=== PATIENT | female | born 1990 | race Caucasian/White ===

== ENCOUNTER 2021-07-09 05:24 | Inpatient (IN) | payer OTHER ==
[~2021-07-09] VITALS: Ht 167.6 cm; Wt 81.8 kg
[2021-07-09] VITALS (9 sets, daily range): BP systolic 118–137; BP diastolic 69–95
[~2021-07-09 05:24] MED LIST: PREN200C PO; ZOLO100T PO
[2021-07-09] MEDS ORDERED: LR 1,000 ML IV ONE (05:45)
[2021-07-09] MEDS ORDERED: ceFAZolin SOD 2 GM in IV 1 EA IV ONE (05:45)
[2021-07-09] MEDS ORDERED: BICITRA 30ML SOLN UDC PO ONE (05:45)
[2021-07-09 06:19] LABS: HEMATOCRIT 35.7 % (36.0-47.0); HEMOGLOBIN 12.4 g/dl (12.0-15.5); MEAN CORPUSCULAR HEMOGLOBIN 30.6 pg (27.0-33.0); MEAN CORPUSCULAR HGB CONC 34.7 g/dl (32.0-36.5); MEAN CORPUSCULAR VOLUME 88.1 fl (80.0-96.0); PLATELET COUNT, AUTOMATED 154 10^3/uL (150-450); RED BLOOD COUNT 4.05 10^6/uL (4.00-5.40); WHITE BLOOD COUNT 6.8 10^3/uL (4.0-10.0)
[2021-07-09] MEDS ORDERED: CLINDAMYCIN 900 MG in IV 1 EA IV ONE (06:35)
[2021-07-09] MEDS ORDERED: HOME MED LIST COMPLETE! XX SCH (06:40)
[2021-07-09] MEDS ORDERED: GENTAMICIN 400 MG in D5W 100 ML IV ONE (06:45)
[2021-07-09] MEDS: LR 1,000 ML IV SCH ×2 (07:07→14:18)
[2021-07-09] MEDS ORDERED: MORPHINE PRES-FREE INJ 10 MG/10 ML VIAL As Ordered ONE (07:14)
[2021-07-09] MEDS ORDERED: OXYTOCIN INJ 10 UNITS/ML VIAL (J2590) As Ordered ONE (07:14)
[2021-07-09] MEDS ORDERED: NALOXONE INJ 0.4MG/1ML VIAL (J2310 PER 1MG) IV PRN ×2 (08:08)
[2021-07-09] MEDS ORDERED: diphenhydrAMINE 50MG/ML VIAL (J1200) IV PRN (08:08)
[2021-07-09] MEDS ORDERED: ONDANSETRON 4MG/2ML VIAL IV PRN ×2 (08:08→09:50)
[2021-07-09] MEDS ORDERED: METOCLOPRAMIDE INJ 10MG/2ML VIAL (J2765 PER 1) IV PRN ×2 (08:08→09:50)
[2021-07-09] MEDS ORDERED: ONDANSETRON 4MG/2ML VIAL As Ordered ONE (08:38)
[2021-07-09] MEDS ORDERED: dexameTHASONE 4 MG/ML 1ML VIAL (J1100 PER 1MG) As Ordered ONE (08:38)
[2021-07-09] MEDS ORDERED: LIDOCAINE 1% MDV 20ML VIAL As Ordered ONE (09:07)
[2021-07-09] MEDS ORDERED: KETOROLAC 60MG 2ML VIAL As Ordered ONE (09:08)
[2021-07-09] MEDS ORDERED: METOCLOPRAMIDE INJ 10MG/2ML VIAL (J2765 PER 1) As Ordered ONE (09:08)
[2021-07-09] MEDS ORDERED: RHOGAM 300 MCG (1500 IU) INJ (J2790) IM SCH (09:25)
[2021-07-09] MEDS ORDERED: MEASLES,MUMPS,RUBELLA VACCINE INJ (MMR-II) (90707) SC SCH (09:25)
[2021-07-09] MEDS ORDERED: oxyCODONE 5MG TAB PO PRN ×2 (09:25→09:50)
[2021-07-09] MEDS ORDERED: LR 1,000 ML IV SCH ×2 (09:25→09:50)
[2021-07-09] MEDS ORDERED: PROMETHAZINE 25 MG TAB PO PRN (09:25)
[2021-07-09] MEDS ORDERED: OXYTOCIN DRIP 30 UNITS in IV 1 EA IV SCH (09:25)
[2021-07-09] MEDS ORDERED: DOCUSATE SODIUM 100MG CAPSULE PO PRN (09:25)
[2021-07-09] MEDS ORDERED: OXYTOCIN 30 UNITS IN 0.9% NaCl 500ML IV BAG (J2590) As Ordered ONE (09:32)
[2021-07-09] MEDS ORDERED: LIDOCAINE 1% MDV 20ML VIAL SC ONE (09:35)
[2021-07-09] MEDS ORDERED: fentaNYL 100 MCG/2 ML INJECTION IV PRN (09:50)
[2021-07-09] MEDS: PRENATAL VITAMINS CHEWABLE TABLET PO SCH (11:23)
[2021-07-09] MEDS: KETOROLAC 30 MG/ML 1ML VIAL IV SCH ×2 (14:53→20:07)
[2021-07-10 02:00] VITALS: BP 113/69
[2021-07-10] MEDS: KETOROLAC 30 MG/ML 1ML VIAL IV SCH (02:24)
[2021-07-10 06:00] VITALS: BP 97/58
[2021-07-10 07:44] LABS: HEMATOCRIT 33.8 % (36.0-47.0); HEMOGLOBIN 11.5 g/dl (12.0-15.5); MEAN CORPUSCULAR VOLUME 91.1 fl (80.0-96.0); PLATELET COUNT, AUTOMATED 145 10^3/uL (150-450); RED BLOOD COUNT 3.71 10^6/uL (4.00-5.40); WHITE BLOOD COUNT 11.9 10^3/uL (4.0-10.0)
[2021-07-10] MEDS: PRENATAL VITAMINS CHEWABLE TABLET PO SCH (09:10)
[2021-07-10 09:58] VITALS: BP 123/80
[2021-07-10] MEDS: IBUPROFEN 800 MG TAB PO SCH ×2 (11:50→19:33)
[2021-07-10 14:00] VITALS: BP 126/79
[2021-07-10] MEDS: ACETAMINOPHEN 500 MG TAB PO PRN (14:00)
[2021-07-10] MEDS: oxyCODONE 5MG TAB PO PRN ×2 (16:52→23:06)
[2021-07-10] MEDS: SIMETHICONE 80MG CHEW TAB PO PRN (17:46)
[2021-07-10 18:00] VITALS: BP 136/82
[2021-07-11] MEDS: IBUPROFEN 800 MG TAB PO SCH ×2 (02:13→11:41)
[2021-07-11 06:00] VITALS: BP 119/71
[2021-07-11] MEDS ORDERED: OXYC-517 PO (07:59)
[2021-07-11] MEDS ORDERED: PRENCHW PO (07:59)
[2021-07-11] MEDS ORDERED: IBUP80TA PO (07:59)
[2021-07-11] MEDS ORDERED: ACET-683 PO (07:59)
[2021-07-11] MEDS ORDERED: COLA100C5 PO (07:59)
[2021-07-11] MEDS: ACETAMINOPHEN 500 MG TAB PO PRN (08:50)
[2021-07-11] MEDS: PRENATAL VITAMINS CHEWABLE TABLET PO SCH (08:51)
[2021-07-11] MEDS: SIMETHICONE 80MG CHEW TAB PO PRN (11:41)
== END 2021-07-11 13:45 | disposition home or self-care (01) | DRG 785 ==
LOC: M LDI 05:24 → M OBS 11:01
PROVIDERS: ADMIT Obstetrics & Gynecology; ATTEND Obstetrics & Gynecology
PROC: 0UT70ZZ Resection of Bilateral Fallopian Tubes, Open Approach (ICD-10-PCS; 2021-07-09)
PROC: 10D00Z1 Extraction of Products of Conception, Low, Open Approach (ICD-10-PCS; principal; 2021-07-09 07:30)
DX: O34.211 Maternal care for low transverse scar from previous cesarean delivery (principal); Z3A.39 39 weeks gestation of pregnancy; Z37.0 Single live birth; Z30.2 Encounter for sterilization